=== PATIENT | female | born 1945 | race African-American/Black ===

== ENCOUNTER 2018-09-21 10:11 | Emergency (ER) | payer MEDICARE ==
[~2018-09-21] VITALS: Ht 177.8 cm; Wt 81.0 kg
[2018-09-21] MEDS ORDERED: ASPIRIN 81MG TABLET PO ONE (11:45)
[2018-09-21 12:13] LABS: HEMATOCRIT. 36.7 % (36.0-48.0); HEMOGLOBIN. 12.7 g/dL (12.0-16.0); MEAN CORPUSCULAR HEMOGLOBIN 30.8 pg (28.0-32.0); MEAN CORPUSCULAR VOLUME 88.9 fL (81.0-99.0); MEAN PLATELET VOLUME 8.1 fl (7.4-10.4); PLATELET 211 x1000/uL (130-400); RED BLOOD CELL COUNT 4.13 mill/uL (4.2-5.4); RED CELL DISTRIBUTION WIDTH 13.5 % (11.6-14.6)
[2018-09-21 12:21] LABS: CHLORIDE 106 mEq/L (98-107)
[2018-09-21 12:31] LABS: PLATELET ESTIMATE NORMAL
[2018-09-21 12:36] LABS: D-DIMER 2.54 mg/L FEU (<0.50); INR 1.1; PARTIAL THROMBOPLASTIN TIME 26.7 sec (23.4-31.0); PROTHROMBIN TIME 11.5 sec (9.6-11.0)
[2018-09-21] MEDS ORDERED: IOHEXOL-350 100 ML BOTTLE ONE (15:07)
[2018-09-21] MEDS ORDERED: ACETAMINOPHEN 325MG TABLET PO PRN (15:15)
[2018-09-21] MEDS ORDERED: DOCUSATE SODIUM 100MG CAPSULE PO PRN (15:15)
[2018-09-21] MEDS ORDERED: CLONIDINE 0.1MG TABLET PO PRN (15:15)
[2018-09-21] MEDS ORDERED: GUAIFENESIN 200MG/10ML SUGAR FREE UDC PO PRN (15:15)
[2018-09-21] MEDS ORDERED: ENOXAPARIN 40MG/0.4ML SYR SUBCUT SCH (15:15)
[2018-09-21] MEDS ORDERED: IPRATROPIUM/ALBUTEROL 0.5-3(2.5)MG/3ML NEB INH PRN (15:15)
[2018-09-21] MEDS ORDERED: ONDANSETRON HCL 4MG/2ML INJ IV PRN (15:15)
[2018-09-21] MEDS ORDERED: REGADENOSON 0.4 MG/5 ML IV SCH (16:48)
[2018-09-21 17:37] VITALS: BP 122/68
[2018-09-21] MEDS ORDERED: ATORVASTATIN CALCIUM 10MG TABLET PO SCH (21:00)
[2018-09-22] MEDS ORDERED: ASPIRIN 81MG EC TABLET PO SCH (09:00)
== END 2018-09-21 17:40 | disposition left against medical advice (07) ==
LOC: ER 10:11 → SUPCPDRO 15:01 → ER 17:40 → ENRESERV 19:13 → CANRESERV 19:13 → CANBEDREQ 09-22 08:52
DX: R06.09 Other forms of dyspnea (principal); R06.02 Shortness of breath; E78.00 Pure hypercholesterolemia, unspecified; E78.5 Hyperlipidemia, unspecified
CPT/HCPCS: 36415; 71045; 71275; 80053; 83880; 84484; 85025; 85379; 85610; 85730; 93005; 99284; Q9967